=== PATIENT | female | born 1955 | race Two or more races ===

== ENCOUNTER 2021-08-08 13:02 | Inpatient (IN) | payer OTHER ==
[~2021-08-08] VITALS: Ht 167.6 cm; Wt 71.7 kg
[2021-08-08] MEDS ORDERED: ONDANSETRON 4 MG/2 ML VIAL IV ONE (13:30)
[2021-08-08] MEDS ORDERED: ONDANSETRON 4 MG/2 ML VIAL ONE (13:39)
[2021-08-08] MEDS: ALBUTEROL SULFATE 2.5 MG/3 ML NEBU NEB ONE ×3 (14:00→14:55)
[2021-08-08] MEDS ORDERED: ALBUTEROL SULFATE 2.5 MG/3 ML NEBU ONE (14:14)
[2021-08-08] MEDS ORDERED: LORAZEPAM 2 MG/1 ML VIAL IV ONE (14:15)
[2021-08-08 14:28] LABS: HEMATOCRIT 41.2 % (31.2-41.9); MEAN CORPUSCULAR HEMOGLOBIN 34.2 uug (24.7-32.8); MEAN CORPUSCULAR VOLUME 100.7 fL (75.5-95.3); PLATELET COUNT (AUTO) 376 K/uL (179-408)
[2021-08-08] MEDS ORDERED: LORAZEPAM 2 MG/1 ML VIAL ONE (14:32)
[2021-08-08 14:34] LABS: CREATININE 0.8 mg/dL (0.6-1.3); ETHANOL < 3 MG/DL (0-0); POTASSIUM 3.8 mmol/L (3.5-5.1)
[2021-08-08 14:38] LABS: ACETAMINOPHEN < 2.0 ug/mL (10-30)
[2021-08-08] MEDS ORDERED: ATENOLOL (15:21)
[2021-08-08] MEDS ORDERED: LOPRESSOR (15:21)
[2021-08-08] MEDS ORDERED: TOPAMAX (15:21)
[2021-08-08] MEDS ORDERED: FOLIC ACID (15:21)
[2021-08-08] MEDS ORDERED: IOHEXOL 350 100 ML INFUS..BTL ONE (15:42)
[2021-08-08] MEDS ORDERED: IV NORMAL SALINE 250 ML IV ONE (15:42)
[2021-08-08] MEDS ORDERED: SWABABLE VALVE TRANSFER SET EA MC ONE (15:43)
[2021-08-08 19:34] LABS: *AMPHETAMINE, URINE NEGATIVE (NEGATIVE); *CANNABINOID, URINE NEGATIVE (NEGATIVE); *COCCAINE, URINE NEGATIVE (NEGATIVE); *OPIATE, URINE POSITIVE (NEGATIVE); *PHENCYCLIDINE SCREEN,URINE NEGATIVE (NEGATIVE)
[2021-08-08] MEDS ORDERED: ACETAMINOPHEN 325 MG TABLET ONE (20:30)
[2021-08-08] MEDS ORDERED: ACETAMINOPHEN 325 MG TABLET PO ONE (20:30)
[2021-08-08] MEDS ORDERED: Z GUARD REMEDY PASTE 57 GM TUBE TOP PRN (20:45)
[2021-08-08] MEDS ORDERED: MAGNESIUM HYDROXIDE 30 ML LIQUID UDC PO PRN (20:45)
[2021-08-08] MEDS ORDERED: ENOXAPARIN SODIUM 40 MG/0.4 ML DISP.SYRIN SQ SCH (20:45)
[2021-08-08] MEDS ORDERED: ASPIRIN 81 MG TAB.CHEW PO ONE (20:45)
[2021-08-08] MEDS ORDERED: GADOTERATE MEGLUMINE 5 MMOL/10 ML VIAL IV ONE (20:51)
[2021-08-08] MEDS: ACETAMINOPHEN 325 MG TABLET PO PRN (21:34)
[2021-08-08] MEDS: ONDANSETRON 4 MG/2 ML VIAL IV PRN (21:43)
[2021-08-08 22:05] VITALS: BP 151/87
[2021-08-08] MEDS: CYCLOBENZAPRINE HCL 10 MG TABLET PO PRN (23:40)
[2021-08-09 00:03] VITALS: BP 103/61
[2021-08-09 04:06] VITALS: BP 102/62
[2021-08-09] MEDS: PANTOPRAZOLE SODIUM 40 MG TABLET.DR PO SCH (06:37)
[2021-08-09 07:18] LABS: HEMATOCRIT 39.1 % (31.2-41.9); MEAN CORPUSCULAR HEMOGLOBIN 34.7 uug (24.7-32.8); PLATELET COUNT (AUTO) 360 K/uL (179-408)
[2021-08-09 07:35] LABS: CREATININE 0.8 mg/dL (0.6-1.3); MAGNESIUM 2.1 mg/dL (1.8-2.4); PHOSPHOROUS 4.6 mg/dL (2.5-4.9); POTASSIUM 3.8 mmol/L (3.5-5.1)
[2021-08-09 08:37] VITALS: BP 108/71
[2021-08-09 09:16] LABS: THYROID STIMULATING HORMONE 0.675 mIU/mL (0.358-3.740)
[2021-08-09] MEDS ORDERED: CHOL200059 PO (11:58)
[2021-08-09] MEDS ORDERED: RANO10005 PO (11:58)
[2021-08-09] MEDS ORDERED: TOPI50TA PO (11:58)
[2021-08-09] MEDS ORDERED: CYCL10TA9 PO (11:58)
[2021-08-09] MEDS ORDERED: HYDR200T81 PO (11:58)
[2021-08-09] MEDS ORDERED: METO25TA6 PO (11:58)
[2021-08-09 12:00] VITALS: BP 109/66
[2021-08-09] MEDS: ACETAMINOPHEN 325 MG TABLET PO PRN ×2 (12:02→17:54)
[2021-08-09] MEDS: METOPROLOL TARTRATE 25 MG TABLET PO SCH ×2 (15:00→22:00)
[2021-08-09 15:56] VITALS: BP 103/62
[2021-08-09 20:00] VITALS: BP 104/59
[2021-08-09] MEDS: RANOLAZINE 500 MG TAB.ER.12H PO SCH (20:03)
[2021-08-09] MEDS: ENOXAPARIN SODIUM 40 MG/0.4 ML DISP.SYRIN SQ SCH (20:04)
[2021-08-09] MEDS ORDERED: TOPIRAMATE 25 MG TABLET PO SCH (21:00)
[2021-08-10] VITALS: BP 102/51
[2021-08-10] MEDS: HYDROCODONE/APAP 5-325MG TABLET PO PRN ×2 (00:47→09:07)
[2021-08-10 04:03] VITALS: BP 117/66
[2021-08-10] MEDS: METOPROLOL TARTRATE 25 MG TABLET PO SCH ×3 (05:43→21:10)
[2021-08-10] MEDS: CYCLOBENZAPRINE HCL 10 MG TABLET PO PRN ×2 (05:43→09:06)
[2021-08-10] MEDS: PANTOPRAZOLE SODIUM 40 MG TABLET.DR PO SCH (06:08)
[2021-08-10] MEDS: ONDANSETRON 4 MG/2 ML VIAL IV PRN (06:16)
[2021-08-10 06:43] LABS: HEMATOCRIT 39.9 % (31.2-41.9); MEAN CORPUSCULAR HEMOGLOBIN 34.9 uug (24.7-32.8); MEAN CORPUSCULAR VOLUME 100.7 fL (75.5-95.3); PLATELET COUNT (AUTO) 390 K/uL (179-408)
[2021-08-10 06:48] LABS: CREATININE 0.8 mg/dL (0.6-1.3); MAGNESIUM 2.1 mg/dL (1.8-2.4); PHOSPHOROUS 4.3 mg/dL (2.5-4.9); POTASSIUM 3.6 mmol/L (3.5-5.1)
[2021-08-10] MEDS ORDERED: HYDROXYCHLOROQUINE SULFATE 200 MG TABLET PO SCH (09:00)
[2021-08-10] MEDS: RANOLAZINE 500 MG TAB.ER.12H PO SCH ×2 (09:03→20:11)
[2021-08-10] MEDS: CHOLECALCIFEROL 1,000 UNIT TABLET PO SCH (09:03)
[2021-08-10] MEDS ORDERED: IV NORMAL SALINE 500 ML IV ONE ×2 (11:30→14:00)
[2021-08-10 12:00] VITALS: BP 101/56
[2021-08-10 16:28] VITALS: BP 99/50
[2021-08-10 20:05] VITALS: BP 91/46
[2021-08-10] MEDS: ENOXAPARIN SODIUM 40 MG/0.4 ML DISP.SYRIN SQ SCH (20:12)
[2021-08-11] VITALS (8 sets, daily range): BP systolic 93–124; BP diastolic 46–60
[2021-08-11] MEDS: METOPROLOL TARTRATE 25 MG TABLET PO SCH ×3 (05:53→21:52)
[2021-08-11] MEDS: PANTOPRAZOLE SODIUM 40 MG TABLET.DR PO SCH (06:05)
[2021-08-11 06:35] LABS: HEMATOCRIT 34.6 % (31.2-41.9); MEAN CORPUSCULAR HEMOGLOBIN 33.8 uug (24.7-32.8); MEAN CORPUSCULAR VOLUME 101.6 fL (75.5-95.3); PLATELET COUNT (AUTO) 326 K/uL (179-408)
[2021-08-11 06:54] LABS: CREATININE 0.8 mg/dL (0.6-1.3); PHOSPHOROUS 2.9 mg/dL (2.5-4.9); POTASSIUM 3.6 mmol/L (3.5-5.1)
[2021-08-11] MEDS: RANOLAZINE 500 MG TAB.ER.12H PO SCH ×3 (08:26→21:51)
[2021-08-11] MEDS: CHOLECALCIFEROL 1,000 UNIT TABLET PO SCH (08:26)
[2021-08-11] MEDS: ACETAMINOPHEN 325 MG TABLET PO PRN ×2 (08:33→18:20)
[2021-08-11] MEDS: ASPIRIN EC 81 MG TABLET.DR PO SCH (10:48)
[2021-08-11] MEDS ORDERED: ATORVASTATIN 40 MG TABLET PO SCH (21:00)
[2021-08-11] MEDS: ENOXAPARIN SODIUM 40 MG/0.4 ML DISP.SYRIN SQ SCH (21:50)
[2021-08-11] MEDS: HYDROCODONE/APAP 5-325MG TABLET PO PRN (22:02)
[2021-08-12] VITALS: BP 96/104
[2021-08-12 04:10] VITALS: BP 106/53
[2021-08-12] MEDS: METOPROLOL TARTRATE 25 MG TABLET PO SCH ×2 (06:00→14:00)
[2021-08-12 06:31] LABS: HEMATOCRIT 35.3 % (31.2-41.9); MEAN CORPUSCULAR HEMOGLOBIN 34.8 uug (24.7-32.8); MEAN CORPUSCULAR VOLUME 100.2 fL (75.5-95.3); PLATELET COUNT (AUTO) 333 K/uL (179-408)
[2021-08-12] MEDS: PANTOPRAZOLE SODIUM 40 MG TABLET.DR PO SCH (06:34)
[2021-08-12 06:49] LABS: CREATININE 0.8 mg/dL (0.6-1.3); MAGNESIUM 2.1 mg/dL (1.8-2.4); POTASSIUM 3.8 mmol/L (3.5-5.1)
[2021-08-12] MEDS: RANOLAZINE 500 MG TAB.ER.12H PO SCH (08:30)
[2021-08-12] MEDS: CHOLECALCIFEROL 1,000 UNIT TABLET PO SCH (08:30)
[2021-08-12] MEDS: ASPIRIN EC 81 MG TABLET.DR PO SCH (08:30)
[2021-08-12 08:32] VITALS: BP 96/50
[2021-08-12 12:00] VITALS: BP 104/54
[2021-08-12] MEDS: ACETAMINOPHEN 325 MG TABLET PO PRN (14:12)
[2021-08-12] MEDS ORDERED: ASPI-618 PO (14:29)
[2021-08-12 16:00] VITALS: BP 142/81
== END 2021-08-12 16:50 | disposition home or self-care (01) | DRG 917 ==
LOC: ER 13:11 → MEDSURG3 20:50 → INTOOBSV 20:50 → OBSVTOIN 20:50 → TELE3 21:11 → MEDSURG3 08-10 10:06 → TELE3 08-10 11:26
PROVIDERS: ADMIT Student in an Organized Health Care Education/Training Program; ATTEND Nurse Practitioner Family
DX: T48.1X1A Poisoning by skeletal muscle relaxants [neuromuscular blocking agents], accidental (unintentional), initial encounter (principal); G92.8 Other toxic encephalopathy; R47.01 Aphasia; E87.1 Hypo-osmolality and hyponatremia; I50.32 Chronic diastolic (congestive) heart failure; Z79.82 Long term (current) use of aspirin; I11.0 Hypertensive heart disease with heart failure; I95.9 Hypotension, unspecified; Z98.890 Other specified postprocedural states; Y92.009 Unspecified place in unspecified non-institutional (private) residence as the place of occurrence of the external cause; Z20.822 Contact with and (suspected) exposure to COVID-19
CPT/HCPCS: 36415; 70030-TC; 70450; 70496; 70553; 71045; 83735; 84100; 84443; 85025; 85730; 93005; 93307; 97161; A4663; A9575; G0378; G0480; J1650; J2060; J2405; J7040; J7050; Q9967